=== PATIENT | female | born 1965 | race Caucasian/White ===

== ENCOUNTER → 2017-08-26 | Outpatient (CLI) | payer BC, OTHER ==
--- NOTE | 2017-08-26 20:32 | Diagnostic Imaging Report ---
INDICATION: Routine screening. Comparison is made with prior study from 05/15/2015 and 04/26/2014. 2-D and 3-D bilateral screening mammography was performed with CAD. The current study was also evaluated with a Computer Aided Detection (CAD) system. FINDINGS: Both breasts are heterogeneously dense, limiting the sensitivity of mammography. Intraparenchymal lymph nodes in upper outer aspects of both breasts appear stable. No new mass or malignant-appearing microcalcifications are seen. The axillae are unremarkable. IMPRESSION: No mammographic features suspicious for malignancy are identified. ACR BI-RADS Category 2: Benign findings. Result letter will be mailed to the patient. Note: At least 10% of breast cancer is not imaged by mammography. Dictated by: Dictated on workstation # [id number]
== END ==
LOC: RAD 11:08
PROVIDERS: ATTEND Obstetrics & Gynecology
DX: Z12.31 Encounter for screening mammogram for malignant neoplasm of breast (principal)
CPT/HCPCS: 77067

== ENCOUNTER 2020-12-01 13:46 | Emergency (ER) | payer OTHER, BC ==
[~2020-12-01] VITALS: Ht 154 cm; Wt 63.0 kg
[2020-12-01] MEDS ORDERED: methylPREDNISolone 80 MG/ML (DEPO MEDROL) VIAL IM STA (14:14)
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
[2020-12-01] MEDS ORDERED: BACL10TA PO (14:58)
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
[2020-12-01 15:11] VITALS: BP 129/82
== END 2020-12-01 15:12 | disposition home or self-care (01) ==
LOC: EDUNIT# 13:46 → ER FS 13:49
DX: S16.1XXA Strain of muscle, fascia and tendon at neck level, initial encounter (principal); S46.812A Strain of other muscles, fascia and tendons at shoulder and upper arm level, left arm, initial encounter; S46.811A Strain of other muscles, fascia and tendons at shoulder and upper arm level, right arm, initial encounter; S29.012A Strain of muscle and tendon of back wall of thorax, initial encounter; V89.2XXA Person injured in unspecified motor-vehicle accident, traffic, initial encounter
CPT/HCPCS: 72125; 72128; 96372

== ENCOUNTER → 2020-12-04 | Outpatient (CLI) | payer OTHER, BC ==
[~2020-12-04] MED LIST: BACL10TA PO
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
== END ==
LOC: RAD FS 11:10
PROVIDERS: ATTEND Family Medicine
DX: M25.511 Pain in right shoulder (principal); V89.2XXA Person injured in unspecified motor-vehicle accident, traffic, initial encounter
CPT/HCPCS: 73030

== ENCOUNTER → 2022-02-10 | Outpatient (CLI) | payer BC ==
--- NOTE | 2022-02-10 10:16 | Diagnostic Imaging Report ---
PROCEDURE: US Gallbladder. TECHNIQUE: Multiple real-time grayscale images were obtained over the right upper quadrant in various projections. INDICATION: Right upper quadrant pain. EXAMINATION: Ultrasound gallbladder 02/10/2022. FINDINGS: Within the left lobe of the liver there is a cystic area measuring 1.1 cm in greatest dimension. No intrahepatic biliary dilatation is seen. The gallbladder wall does not appear thickened. There is no cholelithiasis or pericholecystic fluid. Common duct normal measuring 0.4 cm. Pancreas within normal limits. Right kidney 9.2 cm in length with no hydronephrosis. There is no ascites. Visualized aspects of the IVC and proximal aorta unremarkable IMPRESSION: 1. Simple-appearing cyst in the left lobe of the liver. Remaining visualized structures unremarkable. No evidence for acute cholecystitis. Dictated by: Dictated on workstation # [id number]
== END ==
LOC: RAD FS 07:54
PROVIDERS: ATTEND Surgery
DX: K76.89 Other specified diseases of liver (principal)
CPT/HCPCS: 76705

== ENCOUNTER → 2022-02-16 | Outpatient (CLI) | payer BC ==
[~2022-02-16] MED LIST changes: +CATHETER FLUSH 10 ML SYR IVP PRN
--- NOTE | 2022-02-16 17:39 | Diagnostic Imaging Report ---
Indication: Right upper quadrant pain, Technique: Patient received 5 mCi technetium 99 Choletec and sequential imaging over the abdomen performed. Gallbladder stimulation was performed at the 45 minute interval with ingestion a fatty meal, Ensure and continued imaging for gallbladder ejection fraction performed. There is prompt homogenous distribution of radiopharmacy throughout the liver parenchyma, activity accumulates within the gallbladder within 20 minutes time. The cystic and common duct patency is confirmed. With fatty meal stimulation, there is a normal gallbladder ejection of 64%. Impression: Normal nuclear medicine HIDA scan and normal gallbladder ejection fraction. Dictated by: Dictated on workstation # [id number]
== END ==
LOC: CARD 14:25
PROVIDERS: ATTEND Surgery
DX: R10.11 Right upper quadrant pain (principal)
CPT/HCPCS: 78227; A9537